=== PATIENT | female | born 1950 | race Caucasian/White ===

== ENCOUNTER 2016-08-25 06:33 | Inpatient (IN) | payer OTHER ==
[~2016-08-25] VITALS: Ht 149.9 cm; Wt 69.9 kg
[~2016-08-25 06:33] MED LIST: ASPI81CT89 PO; CALC-741 PO; LISI10TA11 PO; METF500T2 PO; PAX20 PO; ZOLP5TAB1 PO
[2016-08-25] MEDS ORDERED: ceFAZolin 1,000 MG in DEXTROSE 5% 100 ML IV SCH (07:16)
[2016-08-25] MEDS ORDERED: ceFAZolin 1,000 MG VIAL ONE ×2 (07:42→07:56)
[2016-08-25] MEDS ORDERED: BUPIVACAINE-MPF/EPI 0.25% 30 ML VIAL INJ ONE (07:42)
[2016-08-25] MEDS ORDERED: ASPI81CT80 PO (07:59)
[2016-08-25] MEDS ORDERED: METF500T2 PO (07:59)
[2016-08-25] MEDS ORDERED: VITD1000 PO (07:59)
[2016-08-25] MEDS ORDERED: ZOLP10TA6 PO (07:59)
[2016-08-25] MEDS ORDERED: TRAZ-286 PO (07:59)
[2016-08-25] MEDS ORDERED: LISI10TA11 PO (07:59)
[2016-08-25] MEDS ORDERED: PARO37.511 PO (07:59)
[2016-08-25] MEDS ORDERED: PROPOFOL 200 MG/20 ML VIAL IV ONE (08:12)
[2016-08-25] MEDS ORDERED: ONDANSETRON 4 MG/2 ML VIAL IVP ONE (08:12)
[2016-08-25] MEDS ORDERED: GLYCOPYRROLATE 0.2 MG/ML VIAL IV ONE (08:12)
[2016-08-25] MEDS ORDERED: KETOROLAC 15 MG/ML VIAL IVP ONE (08:12)
[2016-08-25] MEDS ORDERED: ROCURONIUM 50 MG/5 ML VIAL IV ONE (08:12)
[2016-08-25] MEDS ORDERED: NEOSTIGMINE 1:1000 10 MG/10 ML VIAL IM ONE (08:12)
[2016-08-25] MEDS ORDERED: DESFLURANE 240 ML BTL INH ONE (08:12)
[2016-08-25] MEDS ORDERED: HYDROmorphone PFS 2 MG/ML SYR ONE (08:22)
[2016-08-25] MEDS ORDERED: fentaNYL 0.05 MG/ML VIAL ONE (08:22)
[2016-08-25] MEDS: BLOOD GLUCOSE MONITORING 1 DEV DEV FS SCH ×2 (10:13→10:35)
[2016-08-25] MEDS ORDERED: ONDANSETRON 4 MG/2 ML VIAL IVP PRN (10:15)
[2016-08-25] MEDS ORDERED: HYDROmorphone 1 MG/ML AMP IVP PRN (10:15)
[2016-08-25] MEDS ORDERED: ZOLPIDEM 5 MG TAB PO PRN (10:50)
[2016-08-25] MEDS ORDERED: MORPHINE SULFATE 4 MG/ML SYR IV PRN (10:50)
[2016-08-25] MEDS ORDERED: ACETAMINOPHEN 325 MG TAB PO PRN (10:50)
[2016-08-25] MEDS ORDERED: HYDROcodone/APAP 5/325 MG 1 TAB TAB PO PRN (10:50)
[2016-08-25] MEDS ORDERED: ONDANSETRON 4 MG/2 ML VIAL IV PRN (10:50)
[2016-08-25] MEDS ORDERED: MORPHINE SULFATE 2 MG/ML SYR IVP PRN (10:50)
--- NOTE | 2016-08-25 11:07 | NUR ---
RECEIVED PT REPORT FROM PACU NURSE JENNY. PT IS LETHARGIC COMING FROM PROCEDURE. PT V/S ARE BP 149/79, HR 84, RESPIRATIONS 20, O2 SAT 91% AND TEMPERATURE 98.1. PT SHOWS NO S/S OF DISTRESS ON ROOM AIR. PT HAS IVF RUNNING ON THE R HAND WHICH IS PATENT AND INTACT. NOTED ABD DRESSINGS CLEAN DRY AND INTACT. PT STATES NO PAIN AT THIS TIME. PT BED IS LOWERED, FLAT, AND CALL LIGHT WITHIN REACH. PT AND FAMILY MEMBER AT BEDSIDE IS AWARE OF PLAN OF CARE AND VERBALIZED UNDERSTANDING.
[2016-08-25 11:37] VITALS: BP 149/79
--- NOTE | 2016-08-25 12:30 | NUR ---
PT HAS NO SLIDING SCALE WILL NOTIFY DR COWAN.
--- NOTE | 2016-08-25 12:55 | NUR ---
DR COWAN WAS MADE AWARE PT BLOOD SUGAR WAS 211. ON EMAR IT ALERTS TO NOTIFY MD OF BS <70 AND >[address] COWAN IS AWARE WILL AWAIT ORDERS.
--- NOTE | 2016-08-25 13:00 | NUR ---
ADMINISTERED SCHEDULED MEDICATIONS. PT IS SLEEPING IN BED AND SHOWS NO S/S OF DISTRESS NOTED. WILL CONTINUE TO MONITOR.
--- NOTE | 2016-08-25 15:09 | NUR ---
PT IS SLEEPING IN BED AND SHOWS NO S/S OF DISTRESS NOTED ON ROOM AIR. MARY DRAIN HAS 75CC OF SANGUINEOUS DRAINAGE.
[2016-08-25 16:00] VITALS: BP 120/63
--- NOTE | 2016-08-25 16:00 | NUR ---
PT BS IS 146.
--- NOTE | 2016-08-25 16:15 | NUR ---
PT IN BED WITH FAMILY AT BEDSIDE. PT STATES NO PAIN AND WOULD LIKE TO SLEEP. PT IS AAOX4 WITH NO S/S OF DISTRESS NOTED AT THIS TIME.
[2016-08-25] MEDS: HYDROmorphone 1 MG/ML AMP IVP PRN (17:27)
--- NOTE | 2016-08-25 18:22 | NUR ---
PT IN BED SLEEPING AND SHOWS NO S/S OF DISTRESS ON ROOM AIR. PT FAMILY MEMBER AT BEDSIDE.
--- NOTE | 2016-08-25 19:30 | NUR ---
GAVE PT REPORT AT BEDSIDE TO NIGHT NURSE. PT ENDORSED IN STABLE CONDITION.
--- NOTE | 2016-08-25 19:30 | NUR ---
ASSUMED CARE OF PATIENT, AWAKE, ALERT AND ORIENTED. FAMILY AT BEDSIDE. CALL LIGHT WITHIN REACH.
--- NOTE | 2016-08-25 20:00 | NUR ---
DRESSING ABDOMEN DRY AND INTACT, MARY DRAINING WELL. BOYER CATHETER DRAINING WELL. SCD ON. NO COMPLAINS AT THIS TIME. PLAN OF CARE DISCUSSED WITH PATIENT, VERBALIZED UNDERSTANDING WELL. CALL LIGHT WITHIN REACH.
--- NOTE | 2016-08-25 23:21 | NUR ---
SLEEPING WELL. NO COMPLAINS. VITAL SIGNS STABLE. CALL LIGHT WITHIN REACH.
[2016-08-26] VITALS: BP 104/62
[2016-08-26] MEDS: HYDROmorphone 1 MG/ML AMP IVP PRN (00:57)
[2016-08-26 06:51] LABS: BASOPHILS # (AUTO) 0.1 K/uL (0.00-0.22); BASOPHILS % (AUTO) 0.8 % (0.0-2.0); EOSINOPHILS # (AUTO) 0.1 K/uL (0-0.4); EOSINOPHILS % (AUTO) 1.2 % (0.0-4.0); HEMATOCRIT 36.7 % (36-48); HEMOGLOBIN 12.5 g/dL (12.0-16.0); LYMPHOCYTES # (AUTO) 1.4 K/uL (2.5-16.5); LYMPHOCYTES % (AUTO) 11.6 % (20.5-51.1); MEAN CORPUSCULAR HEMOGLOBIN 31 pg (27-31); MEAN CORPUSCULAR HGB CONC 34 g/dL (33-37); MEAN CORPUSCULAR VOLUME 92 fL (80-94); MONOCYTES # (AUTO) 0.7 K/uL (0.8-1.0); NEUTROPHILS # (AUTO) 9.7 K/uL (1.8-7.7); NEUTROPHILS % (AUTO) 80.4 % (42.2-75.2); PLATELET COUNT (AUTO) 219 K/uL (140-450); RED CELL DISTRIBUTION WIDTH 12.3 % (11.6-13.7)
--- NOTE | 2016-08-26 06:59 | NUR ---
DC BOYER CATHETER-300ML URINE OUTPUT.
--- NOTE | 2016-08-26 07:10 | NUR ---
ENDORSED CARE AT BEDSIDE WITH ANATOLY WALDEN, PATIENT IN STABLE CONDITION.
--- NOTE | 2016-08-26 07:10 | NUR ---
PT RECEIVED FROM NIGHT NURSE. PT IS AAOX4 ON ROOM AIR AND SHOWS NO S/S OF DISTRESS NOTED. PT HAS NOTED IV ON THE R HAND SALINE SOFY. PT HAS A DRESSING CLEAN DRY AND INTACT. MARY DRAIN HAS MINIMAL SANGUINEOUS FLUID. PT BED IS LOWERED WITH CALL LIGHT WITHIN REACH. PT VERBALIZED UNDERSTANDING OF POC FOR THE DAY.
[2016-08-26 08:00] VITALS: BP 128/61
[2016-08-26] MEDS ORDERED: ENOXAPARIN 40 MG/0.4 ML SYR SUBQ SCH (09:00)
--- NOTE | 2016-08-26 09:00 | NUR ---
ADMINISTERED SCHEDULED MEDICATIONS. PT IS DOING WELL ON ROOM AIR AND SHOWS NO S/S OF DISTRESS. PT REFUSED TO EAT MORE OF BREAKFAST. PT STATES SHE FEELS NAUSEAS. GAVE PT NAUSEA MEDICATION. WILL CONTINUE TO MONITOR.
--- NOTE | 2016-08-26 10:19 | NUR ---
PATIENT HAS BEEN SCREENED AND CATEGORIZED MODERATE NUTRITION RISK. PATIENT WILL BE SEEN WITHIN 3-5 DAYS OF ADMISSION. 08/27/16-08/29/[address]
--- NOTE | 2016-08-26 11:48 | NUR ---
PT FAMILY MEMBER STATED PT VOMITED. ALL NEEDS WERE MET.
--- NOTE | 2016-08-26 12:30 | NUR ---
PT WALKED AROUND UNIT WITH FAMILY MEMBER. PT TOLERATED ACTIVITY WELL. PT IS IN ROOM NOW AND SHOWS NO S/S OF DISTRESS NOTED ON ROOM AIR. PT TRIED TO SIT DOWN ON THE TOILET HOWEVER SHE STATED SHE WAS IN PAIN. WHEN ASKED PT IF SHE WOULD LIKE PAIN MEDICATION. PT REFUSED. PT AMB TO CHAIR AND SAT DOWN. PT MARY DRAIN WAS 50CC. PT IS RESTING ON CHAIR AT BEDSIDE AND STATES SHE WILL SIT THERE FOR A WHILE. PT HAS CALL LIGHT WITHIN REACH AND FAMILY AT BEDSIDE. WILL CONTINUE TO MONITOR.
--- NOTE | 2016-08-26 15:30 | NUR ---
PT IS IN BED SLEEPING AND SHOWS NO S/S OF DISTRESS.
[2016-08-26 16:00] VITALS: BP 123/58
--- NOTE | 2016-08-26 18:00 | NUR ---
PT WAS ENCOURAGED TO SIT ON THE TOILET AND USE THE RESTROOM. PT VOIDED.
--- NOTE | 2016-08-26 19:00 | NUR ---
TOOK PICTURES OF INCISIONAL VENTRAL HERNIA. WOUND HAS NO SIGNS OF INFECTION AT WOUND SITE. PT AND PT FAMILY MEMBER WERE TAUGHT HOW TO PERFORM DRESSING CHANGES ORDERED. PT WAS ALSO TAUGHT HOW TO EMPTY OUT MARY DRAIN. MARY DRAIN HAD 25 CC. PT AND FAMILY VERBALIZED UNDERSTANDING OF THE EDUCATION PROVIDED.
[2016-08-26 19:36] VITALS: BP 119/53
[2016-08-26] MEDS ORDERED: ACET-5629 PO ×2 (19:48→19:49)
--- NOTE | 2016-08-26 20:00 | NUR ---
PT HAS BEEN DISCHARGED. ALL DISCHARGE INSTRUCTIONS AND PRESCRIPTIONS IN PT POSSESSION. ALL BELONGINGS PT HAS ON HAND WITH FAMILY MEMBER. IV WAS DISCONTINUED WITH CANNULA INTACT. WRISTBANDS REMOVED. OFFERED PT WHEELCHAIR. PT LEFT UNIT WITH FAMILY MEMBER PRESENT AT SIDE. PT IN STABLE CONDITION.
--- NOTE | 2016-08-28 08:02 | NUR ---
FAXED RETRO REVIEW TO [facility] [phone] PHONE NASIR [phone]
== END 2016-08-26 20:15 | disposition home or self-care (01) | DRG 227 ==
LOC: MDS 06:33 → MMU 06:34 → MDS 08:22 → MTU 08:23
PROVIDERS: ADMIT Surgery; ATTEND Surgery
PROC: 0WUF0JZ Supplement Abdominal Wall with Synthetic Substitute, Open Approach (ICD-10-PCS; principal; 2016-08-25 12:10)
DX: K43.2 Incisional hernia without obstruction or gangrene (principal)
CPT/HCPCS: 36415; 71010; 82948; 85025; 87081; 93005; J0690; J1170; J1650; J1885; J2405; J2704; J2710; J3010; J3490; J7030; J7060; J7120